=== PATIENT | female | born 1995 | race Caucasian/White ===

== ENCOUNTER 2021-12-17 14:52 | Observation (INO) ==
[2021-12-17] MEDS ORDERED: IOPAMIDOL 100 ML BOTTLE IV ONE (14:53)
--- NOTE | 2021-12-17 15:30 | Emergency Department Note ---
Abdominal Pain HPI <Larry Carranza PA-C - Last Filed: 12/17/21 16:32> General Chief Complaint: Abdominal Pain Stated Complaint: RLQ pain x few days Time Seen by Provider: 12/17/21 14:54 Source: patient Mode of arrival: ambulatory History of Present Illness HPI Narrative: Narrative: 26-year-old female who denies chronic medical history presents to the ER to be evaluated for 4 days of worsening right lower quadrant abdominal pain. She states the only position she feels relief is when she is standing but otherwise she is uncomfortable all the time. She denies history of ovarian cysts. She has had no vaginal bleeding or discharge she has no dysuria, urgency or frequency. She has no previous history of abdominal surgery and denies possibility of being . She has not had any change in her bowel or bladder habits she took a bowel movement this morning that was regular in caliber, character and quality. She has no dysuria, urgency or frequency. She has had no fever or change in appetite. She has no other acute complaints at this time. Related Data Home Medications Medication Instructions Recorded Confirmed No Known Home Meds 12/17/21 12/17/21 Allergies Allergy/AdvReac Type Severity Reaction Status Date / Time No Known Drug Allergies Allergy Verified 12/17/21 14:53 Review of Systems <Larry Carranza PA-C - Last Filed: 12/17/21 16:32> ROS ROS Narrative: Narrative: All systems ED: reviewed and negative except as stated. PFSH <Larry Carranza PA-C - Last Filed: 12/17/21 16:32> Narrative Patient History Narrative: Narrative: Medical/Surgical/Family History All Active Problems (Updated 12/17/21 @ 16:31 by Larry Carranza PA-C) Appendicitis (Acute) Social History Smoking Status: Current every day smoker Alcohol Intake Frequency: holiday/special occasion only Substance Use: marijuana Exam <Larry Carranza PA-C - Last Filed: 12/17/21 16:32> Narrative Narrative: Narrative: Gen: No acute distress Eyes: PERRL, no conjunctival injection , and symmetrical lids. Sclerae non icteric HENMT: Normocephalic Atraumatic head, external nose and ears. Moist MM. CVS: +S1/S2, No murmurs or gallops. Radial pulses 2+ and equal bilat. No swelli ng RESP: Unlabored respiratory effort . Clear to auscultation bilaterally (CTAB). No noted wheezes rales or ronchi. GI: Significant right lower quadrant tenderness with guarding other quadrants soft nontender Skin: Warm, Dry . No rashes or lesions . Cap refill less than 2. Psych: Awake, Alert, & Oriented (AAO) x3. Appropriate mood and affect . Course <Larry Carranza PA-C - Last Filed: 12/17/21 16:32> Vital Signs Vital signs: Vital Signs Temperature 97.6 F 12/17/21 14:53 Pulse Rate 71 12/17/21 14:53 Respiratory Rate 18 12/17/21 14:53 Blood Pressure 120/79 12/17/21 14:53 Pulse Oximetry (%) 99 12/17/21 14:53 Temperature 97.6 F 12/17/21 14:53 Pulse Rate 75 12/17/21 16:21 Respiratory Rate 18 12/17/21 14:53 Blood Pressure 124/85 12/17/21 16:21 Pulse Oximetry (%) 99 12/17/21 16:21 MDM <Larry Carranza PA-C - Last Filed: 12/17/21 16:32> MDM Narrative Medical decision making narrative: Narrative: Patient has had 4 days of right lower quadrant abdominal pain. No history of ovarian cysts, fever, chills, nausea or vomiting. She has never had an abdominal surgery and does have an appendix. Given her guarding and significant pain I do suspect appendicitis. She will be evaluated with CBC, CMP, lipase, UA and urine hCG. Show a CT scan of her abdomen pelvis with contrast. CBC: No white count CMP: Unremarkable Lipase: Normal UA: No evidence of infection hCG: Negative CT abdomen pelvis with contrast: Appendicitis, appendix is 15 mm and enlarged no periods and appendiceal fluid or appendicolith Dr Doss: Admit to him, NPO, Start on Zosyn. Patient last ate yesterday Lab Data Result diagrams: 12/17/21 15:06 12/17/21 15:06 Labs: Lab Results 12/17/21 12/17/21 Range/Units 15:06 15:06 WBC 9.2 (4.5-11.0) K/mcL RBC 3.91 (3.59-5.38) M/mcL Hgb 12.9 (11.2-15.7) g/dL Hct 38.0 (34.1-44.9) % MCV 97.2 (80.0-100.0) fL MCH 33.0 (26.0-34.0) pg MCHC 33.9 (31.0-36.0) g/dL RDW 11.1 L (11.5-14.5) % Plt Count 256 (140-440) K/mcL MPV 10.6 H (7.4-10.4) fL Neut % (Auto) 64.5 (38.0-78.0) % Lymph % (Auto) 27.8 (15.5-49.0) % Harney % (Auto) 5.7 (1.0-12.0) % Eos % (Auto) 1.5 (0.0-7.0) % Baso % (Auto) 0.5 (0.0-2.0) % Lymph # (Auto) 2.56 (1.50-4.80) K/mcL Harney # (Auto) 0.53 (0.10-0.90) K/mcL Eos # (Auto) 0.14 (0.00-0.70) K/mcL Baso # (Auto) 0.05 (0.00-0.30) K/mcL Absolute Neutrophils 5.94 (1.80-8.00) K/mcL Sodium 132 L (133-145) mmol/L Potassium 3.8 (3.3-5.1) mmol/L Chloride 94 L (96-108) mmol/L Carbon Dioxide 25 (22-30) mmol/L Anion Gap 13.0 (8.0-16.0) BUN 11 (6-20) mg/dL Creatinine 0.9 (0.6-1.1) mg/dL GFR Calculation 88 Glucose 106 H (70-105) mg/dL Calcium 9.3 (8.6-10.4) mg/dL Total Bilirubin 0.3 (0.1-1.0) mg/dL AST 14 (<32) U/L ALT 8 (<40) U/L Alkaline Phosphatase 102 (39-117) U/L Total Protein 7.8 (5.9-8.4) gm/dL Albumin 4.6 (3.2-5.2) gm/dL Globulin 3.2 (2.2-3.7) gm/dL Albumin/Globulin Ratio 1.4 (1.0-2.3) Lipase 12 (7-60) U/L ED POC Tests ED POC Tests: TABBY - SARS Antigen Negative HCG POC Results Negative Discharge Plan Patient/Caregiver Discharge Instructions Pt seen by FILM COMPOSER/PA only: Yes Clinical Impression: Appendicitis Patient Disposition: Xfer As Inpt ([facility]) Condition: Fair Discharge Date/Time: 12/17/21 17:10 Discharge Location: [facility]
[2021-12-17] MEDS: morphine 4 MG/ML VIAL IV PRN ×3 (15:51→20:52)
--- NOTE | 2021-12-17 15:55 | Cat Scan Report ---
INDICATION: R/O appy COMPARISON: None TECHNIQUE: Axial images were obtained through the abdomen and pelvis. Sagittally and coronally reformatted images. 80 mL Isovue 370 injected intravenously. Oral contrast material was not administered FINDINGS: Lung bases:Negative. No pulmonary parenchymal nodule. No pleural fluid or pericardial fluid Liver:Negative. No focal intrahepatic mass. No focal abnormality. Liver contour is smooth. No evidence for cirrhosis Gallbladder, bilary:No calcified gallstones. No gallbladder wall thickening. No dilated intra or extrahepatic bile ducts. Spleen:No splenomegaly. Normal enhancement of splenic and portal veins. Pancreas:No pancreatic mass. No peripancreatic abnormality Adrenal glands:Negative Kidneys,ureters,bladder:No solid renal mass. No hydronephrosis. No obstructing or nonobstructing calculi. No hydroureter. No ureteral calculus. No bladder stone. No detectable bladder mass. Gastrointestinal:No detectable colonic mass. There is no diverticulitis. Negative small bowel. No mechanical small bowel obstruction. No bowel wall thickening. No focal abnormality. Negative stomach and duodenum. No focal abnormality. Appendix: The appendix is abnormal. The appendix is enlarged and measures 15 mm in cross-sectional diameter. There is mild periappendiceal inflammatory change. No evidence for ruptured appendix. There is no appendicolith. No abscess. No significant periappendiceal fluid collection Vascular:Negative abdominal aorta. Superior mesenteric artery and celiac trunk are normal. Normal opacification of the inferior mesenteric artery Lymphatic:No retroperitoneal or mesenteric adenopathy Mesentery, peritoneum: No free intraperitoneal fluid. No mesenteric or retroperitoneal mass. No intra-abdominal abscess. Reproductive:Uterus is anteflexed. No adnexal mass Musculoskeletal:No lumbar compression fractures. Sacrum and pelvis are negative. No hip fracture. No abdominal wall or inguinal hernia IMPRESSION: 1. Appendicitis. 2. No evidence for ruptured appendix. No abscess or significant periappendiceal fluid collection The exam was performed using radiation dose optimization techniques including, but not limited to, automated exposure control, adjustment of the mA and/or kV according to patient size and use of iterative reconstruction technique. Interpreted and Authenticated by: Dustin Pang 12/17/21
[2021-12-17 15:57] LABS: Basophils # (Auto) 0.05 K/mcL (0.00-0.30); Basophils % (Auto) 0.5 % (0.0-2.0); Eosinophils # (Auto) 0.14 K/mcL (0.00-0.70); Eosinophils % (Auto) 1.5 % (0.0-7.0); Hemoglobin 12.9 g/dL (11.2-15.7); Lymphocytes # (Auto) 2.56 K/mcL (1.50-4.80); Lymphocytes % (Auto) 27.8 % (15.5-49.0); Mean Cell Volume 97.2 fL (80.0-100.0); Mean Corpuscular HGB Conc 33.9 g/dL (31.0-36.0); Mean Platelet Volume 10.6 fL (7.4-10.4); Monocytes # (Auto) 0.53 K/mcL (0.10-0.90); Monocytes % (Auto) 5.7 % (1.0-12.0); Neutrophils % (Auto) 64.5 % (38.0-78.0); Platelet Count 256 K/mcL (140-440); RBC 3.91 M/mcL (3.59-5.38); Red Cell Distribution Width 11.1 % (11.5-14.5); WBC 9.2 K/mcL (4.5-11.0)
[2021-12-17] MEDS ORDERED: PIPERACILLIN SODIUM/TAZOBACTAM 3.375 GM in DEXTROSE 5% IN WATER 50 ML IV ONE (16:02)
[2021-12-17] MEDS ORDERED: morphine 4 MG/ML VIAL IV PRN (16:03)
[2021-12-17] MEDS ORDERED: ONDANSETRON 4 MG/2 ML VIAL IV PRN (16:03)
[2021-12-17 16:27] LABS: ALT/SGPT 8 U/L (<40); AST/SGOT 14 U/L (<32); Albumin 4.6 gm/dL (3.2-5.2); Albumin/Globulin Ratio 1.4 (1.0-2.3); Alkaline Phosphatase 102 U/L (39-117); Bilirubin,Total 0.3 mg/dL (0.1-1.0); Blood Urea Nitrogen 11 mg/dL (6-20); Calcium 9.3 mg/dL (8.6-10.4); Carbon Dioxide 25 mmol/L (22-30); Chloride 94 mmol/L (96-108); Globulin 3.2 gm/dL (2.2-3.7); Glomerular Filtration Rate 88; Glucose 106 mg/dL (70-105)
[2021-12-17] MEDS: 0.9 % SODIUM CHLORIDE 1,000 ML IV SCH (16:56)
--- NOTE | 2021-12-17 18:11 | General Surg History&Physical ---
HPI History of Present Illness Patient information: Note initiated : 12/17/21 at 6:06 pm Service Date, if different from initiated Date: [] Patient: Rj Amos a 26 y/o F admitted on 12/17/21 for RLQ pain x few days. Chief Complaint: [] History of present illness: Ms. Amos is a 26 year old F with a 4-day history of lower abdomen and right lower quadrant pain. She had some nausea but no vomiting. The pain increased in intensity to the point that she was having exacerbations with any movement. She was evaluated in the emergency room and was noted to have severe right lower quadrant pain and tenderness with questionable mass. CT shows appendiceal dilation with inflammation of mild periappendiceal inflammation. She has a normal white count. She is afebrile. She is counseled for laparoscopic appendectomy and it will be performed tomorrow. She will be treated with antibiotics tonight. Review of Systems All systems: reviewed and no additional remarkable complaints except as stated PFSH PFSH All Active Problems (Updated 12/17/21 @ 18:10 by Marcella Doss MD) Acute appendicitis (Acute) Appendicitis (Acute) Social History alcohol intake frequency: holiday/special occasion only substance use type: marijuana MEDS/ALLERGIES Home Medications and Allergies Home Medications Medication Instructions Recorded Confirmed Type No Known Home Meds 12/17/21 12/17/21 History Allergies Allergy/AdvReac Type Severity Reaction Status Date / Time No Known Drug Allergies Allergy Verified 12/17/21 14:53 Physical Examination Vital Signs Vital signs: Temp Pulse Resp BP Pulse Ox 98.2 F 75 16 112/67 98 12/17/21 18:03 12/17/21 18:03 12/17/21 18:03 12/17/21 18:03 12/17/21 18:03 General physical appearance General physical exam: no distress and moderate pain Eyes Eye exam: PERRL and normal ocular movement ENT ENT exam: normal mucosa and no congestion Head Head exam IM: Present atraumatic, normal inspection and normocephalic Neck Neck exam: no masses, no bruits, trachea midline, no lymphadenopathy and no venous distension Cardiovascular Cardiovascular exam IM: Present normal rate and rhythm, RRR, +S1 and +S2; Absent JVD Respiratory Respiratory exam: normal expansion, normal respiratory effort and clear to auscultation Abdomen Abdomen: Present soft, tender (Tenderness to palpation in the right lower quadrant and hypogastric) and guarding; Absent masses Integumentary Integumentary: Present no rash, no growths, no abnormal pigmentation and other (Extensive tattoos) Neurologic Neurologic: Present normal coordination and normal sensation Musculoskeletal Musculoskeletal: Present normal gait and normal posture Psychiatric Psychiatric: Present oriented to time, oriented to person, oriented to place, speech is normal and memory intact Results Labs Result diagrams: 12/17/21 15:06 12/17/21 15:06 Labs: Abnormal lab results 12/17/21 12/17/21 Range/Units 15:06 15:06 RDW 11.1 L (11.5-14.5) % MPV 10.6 H (7.4-10.4) fL Sodium 132 L (133-145) mmol/L Chloride 94 L (96-108) mmol/L Glucose 106 H (70-105) mg/dL Diabetes panel 12/17/21 Range/Units 15:06 Sodium 132 L (133-145) mmol/L Potassium 3.8 (3.3-5.1) mmol/L Chloride 94 L (96-108) mmol/L Carbon Dioxide 25 (22-30) mmol/L BUN 11 (6-20) mg/dL Creatinine 0.9 (0.6-1.1) mg/dL Glucose 106 H (70-105) mg/dL Calcium 9.3 (8.6-10.4) mg/dL AST 14 (<32) U/L ALT 8 (<40) U/L Alkaline Phosphatase 102 (39-117) U/L Total Protein 7.8 (5.9-8.4) gm/dL Albumin 4.6 (3.2-5.2) gm/dL Calcium panel 12/17/21 Range/Units 15:06 Calcium 9.3 (8.6-10.4) mg/dL Albumin 4.6 (3.2-5.2) gm/dL Pituitary panel 12/17/21 Range/Units 15:06 Sodium 132 L (133-145) mmol/L Potassium 3.8 (3.3-5.1) mmol/L Chloride 94 L (96-108) mmol/L Carbon Dioxide 25 (22-30) mmol/L BUN 11 (6-20) mg/dL Creatinine 0.9 (0.6-1.1) mg/dL Glucose 106 H (70-105) mg/dL Calcium 9.3 (8.6-10.4) mg/dL Adrenal panel 12/17/21 Range/Units 15:06 Sodium 132 L (133-145) mmol/L Potassium 3.8 (3.3-5.1) mmol/L Chloride 94 L (96-108) mmol/L Carbon Dioxide 25 (22-30) mmol/L BUN 11 (6-20) mg/dL Creatinine 0.9 (0.6-1.1) mg/dL Glucose 106 H (70-105) mg/dL Calcium 9.3 (8.6-10.4) mg/dL Total Bilirubin 0.3 (0.1-1.0) mg/dL AST 14 (<32) U/L ALT 8 (<40) U/L Alkaline Phosphatase 102 (39-117) U/L Total Protein 7.8 (5.9-8.4) gm/dL Albumin 4.6 (3.2-5.2) gm/dL All other labs normal. A/P Assessment and plan (1) Acute appendicitis: Status: Acute Narrative A/P Narrative: May have clear liquids until midnight N.p.o. after midnight Counseled for laparoscopic appendectomy to be done tomorrow Zosyn 3.375 g IV every 6 hours CBC and inpatient panel in the morning Time Spent With Patient Time: Total time spent is greater than 50% in coordination of care (as documented) at patient's floor/unit and/or counseling patient:
[2021-12-17] MEDS ORDERED: PROMETHAZINE 25 MG/ML VIAL IV PRN (18:13)
[2021-12-18] MEDS: PIPERACILLIN SODIUM/TAZOBACTAM 3.375 GM in DEXTROSE 5% IN WATER 50 ML IV SCH ×4 (00:34→17:20)
[2021-12-18] MEDS: 0.9 % SODIUM CHLORIDE 1,000 ML IV SCH ×3 (01:14→17:14)
[2021-12-18] MEDS: morphine 4 MG/ML VIAL IV PRN ×4 (05:31→22:55)
[2021-12-18 06:44] LABS: Basophils # (Auto) 0.04 K/mcL (0.00-0.30); Basophils % (Auto) 0.7 % (0.0-2.0); Eosinophils # (Auto) 0.25 K/mcL (0.00-0.70); Eosinophils % (Auto) 4.6 % (0.0-7.0); Hemoglobin 11.8 g/dL (11.2-15.7); Lymphocytes # (Auto) 2.51 K/mcL (1.50-4.80); Lymphocytes % (Auto) 46.6 % (15.5-49.0); Mean Cell Volume 99.2 fL (80.0-100.0); Mean Corpuscular HGB Conc 33.7 g/dL (31.0-36.0); Mean Platelet Volume 10.8 fL (7.4-10.4); Monocytes # (Auto) 0.46 K/mcL (0.10-0.90); Monocytes % (Auto) 8.5 % (1.0-12.0); Neutrophils % (Auto) 39.6 % (38.0-78.0); Platelet Count 226 K/mcL (140-440); RBC 3.53 M/mcL (3.59-5.38); Red Cell Distribution Width 11.1 % (11.5-14.5); WBC 5.4 K/mcL (4.5-11.0)
[2021-12-18 07:14] LABS: ALT/SGPT 7 U/L (<40); AST/SGOT 11 U/L (<32); Albumin 3.7 gm/dL (3.2-5.2); Albumin/Globulin Ratio 1.5 (1.0-2.3); Alkaline Phosphatase 79 U/L (39-117); Bilirubin,Direct < 0.2 mg/dL (0-0.3); Bilirubin,Total 0.2 mg/dL (0.1-1.0); Blood Urea Nitrogen 10 mg/dL (6-20); Calcium 8.6 mg/dL (8.6-10.4); Carbon Dioxide 25 mmol/L (22-30); Chloride 105 mmol/L (96-108); Globulin 2.4 gm/dL (2.2-3.7); Glomerular Filtration Rate 88; Glucose 91 mg/dL (70-105); Lactate Dehydrogenase 141 U/L (135-225); Phosphorous 4.7 mg/dL (2.5-4.5); Triglycerides 85 mg/dL (<150); Uric Acid 3.8 mg/dL (2.5-8.0)
[2021-12-18] MEDS ORDERED: SCOPOLAMINE 1 PATCH PATCH TOPICAL PRN (09:59)
[2021-12-18] MEDS ORDERED: IPRATROPIUM/ALBUTEROL 3 ML AMPUL.NEB NEB PRN ×2 (09:59→13:11)
[2021-12-18] MEDS ORDERED: LIDOCAINE HCL/PF 100 MG/5 ML SYRINGE IV ONE (12:36)
[2021-12-18] MEDS ORDERED: MIDAZOLAM 2 MG/2 ML VIAL ONE (12:36)
[2021-12-18] MEDS ORDERED: KETAMINE 50 MG/ML Syringe (ANEST) IV ONE (12:36)
[2021-12-18] MEDS ORDERED: DEXAMETHASONE 10 MG/ML VIAL ONE (12:36)
[2021-12-18] MEDS ORDERED: ROCURONIUM 10 MG/ML ML IV ONE (12:36)
[2021-12-18] MEDS ORDERED: PROPOFOL 200 MG/20 ML VIAL IV ONE (12:36)
[2021-12-18] MEDS ORDERED: ONDANSETRON 4 MG/2 ML VIAL ONE (12:36)
[2021-12-18] MEDS ORDERED: fentaNYL 100 MCG/2 ML VIAL IV ONE (12:36)
[2021-12-18] MEDS ORDERED: SUGAMMADEX SODIUM 200 MG/2 ML VIAL IV ONE (12:36)
[2021-12-18] MEDS ORDERED: KETOROLAC 30 MG/ML VIAL ONE (12:36)
[2021-12-18] MEDS ORDERED: FAMOTIDINE/PF 20 MG/2 ML VIAL IV ONE (12:36)
[2021-12-18 12:48] LABS: Appearance,Urine Clear (Clear); Bilirubin,Urine Negative (Negative); Color,Urine Yellow; Culture Indicated,Urine No; Glucose,Urine (UA) Negative (Negative); Ketones,Urine Negative (Negative); Leukocyte Esterase,Urine Negative /uL (Negative); Nitrate,Urine Negative (Negative); Protein,Urine Negative (Negative); Urine Blood Negative ery/mcL (Negative); Urobilinogen,Urine Normal
[2021-12-18] MEDS ORDERED: BENZOCAINE/MENTHOL 1 LOZENGE PO PRN (13:11)
[2021-12-18] MEDS ORDERED: FLUMAZENIL 0.1 MG/ML ML IV PRN (13:11)
[2021-12-18] MEDS ORDERED: NALOXONE HCL 0.4 MG/ML VIAL IV PRN (13:11)
[2021-12-18] MEDS ORDERED: ACETAMINOPHEN 1,000 MG/100 ML BAG IV ONE (13:11)
[2021-12-18] MEDS ORDERED: PROMETHAZINE 25 MG/ML VIAL IV PRN (13:11)
[2021-12-18] MEDS ORDERED: MEPERIDINE 25 MG/ML VIAL IV PRN (13:11)
[2021-12-18] MEDS ORDERED: HYDROmorphone 0.5 MG/0.5 ML SYRINGE IV PRN (13:11)
--- NOTE | 2021-12-18 13:12 | Brief Operative Note ---
Brief Operative Note Date of procedure: 12/18/21 Pre-op diagnosis: acute appendicitis Post-op diagnosis: other (acute appendicitis) Procedure: LAPAROSCOPIC APPENDECTOMY Grafts/Implants: No Anesthesia: GETA Findings: ACUTE SUPPURATIVE APPENDICITIS Complications: none Surgeon: Marcella Doss Estimated blood loss (cc): 10 Specimens Removed/Pathology: other (APPENDIX) Condition: stable Disposition: PACU
[2021-12-18] MEDS ORDERED: LACTATED RINGERS 1,000 ML IV SCH (13:15)
[2021-12-18] MEDS: fentaNYL 100 MCG/2 ML VIAL IV PRN ×4 (13:58→14:06)
[2021-12-18] MEDS: HYDROmorphone 1 MG/ML SYRINGE IV PRN ×2 (15:08→17:18)
[2021-12-18 16:31] LABS: Basophils # (Auto) 0.04 K/mcL (0.00-0.30); Basophils % (Auto) 0.4 % (0.0-2.0); Eosinophils # (Auto) 0.05 K/mcL (0.00-0.70); Eosinophils % (Auto) 0.5 % (0.0-7.0); Hematocrit 34.9 % (34.1-44.9); Hemoglobin 11.9 g/dL (11.2-15.7); Lymphocytes # (Auto) 1.24 K/mcL (1.50-4.80); Lymphocytes % (Auto) 12.9 % (15.5-49.0); Mean Cell Volume 96.7 fL (80.0-100.0); Mean Corpuscular HGB Conc 34.1 g/dL (31.0-36.0); Mean Platelet Volume 10.7 fL (7.4-10.4); Neutrophils % (Auto) 85.2 % (38.0-78.0); Platelet Count 240 K/mcL (140-440); RBC 3.61 M/mcL (3.59-5.38); Red Cell Distribution Width 10.8 % (11.5-14.5); WBC 9.6 K/mcL (4.5-11.0)
[2021-12-18] MEDS: oxyCODONE HCL 5 MG TABLET PO PRN (19:26)
[2021-12-18] MEDS: ACETAMINOPHEN 1,000 MG/100 ML BAG IV SCH (21:28)
[2021-12-19] MEDS: PIPERACILLIN SODIUM/TAZOBACTAM 3.375 GM in DEXTROSE 5% IN WATER 50 ML IV SCH ×3 (00:40→11:19)
[2021-12-19] MEDS: 0.9 % SODIUM CHLORIDE 1,000 ML IV SCH ×2 (00:41→11:12)
[2021-12-19] MEDS: ACETAMINOPHEN 1,000 MG/100 ML BAG IV SCH ×3 (01:26→13:30)
[2021-12-19] MEDS: morphine 4 MG/ML VIAL IV PRN (03:42)
[2021-12-19 07:10] LABS: Basophils # (Auto) 0.02 K/mcL (0.00-0.30); Basophils % (Auto) 0.2 % (0.0-2.0); Eosinophils # (Auto) 0 K/mcL (0.00-0.70); Eosinophils % (Auto) 0 % (0.0-7.0); Hematocrit 32.2 % (34.1-44.9); Hemoglobin 11.4 g/dL (11.2-15.7); Lymphocytes # (Auto) 1.39 K/mcL (1.50-4.80); Lymphocytes % (Auto) 12.8 % (15.5-49.0); Mean Cell Volume 95.3 fL (80.0-100.0); Mean Corpuscular HGB Conc 35.4 g/dL (31.0-36.0); Mean Platelet Volume 10.9 fL (7.4-10.4); Monocytes # (Auto) 0.58 K/mcL (0.10-0.90); Monocytes % (Auto) 5.3 % (1.0-12.0); Neutrophils % (Auto) 81.7 % (38.0-78.0); Platelet Count 246 K/mcL (140-440); RBC 3.38 M/mcL (3.59-5.38); Red Cell Distribution Width 10.6 % (11.5-14.5); WBC 10.9 K/mcL (4.5-11.0)
[2021-12-19] MEDS: oxyCODONE HCL 5 MG TABLET PO PRN ×2 (07:33→11:34)
--- NOTE | 2021-12-19 12:55 | Discharge Summary ---
Discharge Provider Provider Patient information: Note initiated : 12/19/21 at 12:52 pm Service Date, if different from initiated Date: [] Patient: Rj Amos 26 y/o F admitted on 12/17/21 for RLQ pain x few days. Chief Complaint: [] Date of admission: 12/17/21 17:05 Discharge date: 12/19/21 Primary care physician: PCP No Admitting clinician: Marcella Doss Attending physician on admission: Marcella Doss Consults: 12/17/21 Consult to Physician [CONS] Stat Comment: Consulting Provider: Marcella Doss Reason For Exam: Physician to Consult Attending physician on discharge: Marcella Doss Discharging clinician: Marcella Doss COURSE Hospital Course Hospital course: 26-year-old female with history of hypogastric and right lower quadrant pain. Patient was evaluated in the emergency room with findings of tenderness with guarding in the right lower quadrant. CT showed acute appendicitis. She underw ent laparoscopic appendectomy on yesterday. She has had an uneventful course and is discharged in stable satisfactory condition. Discharge diagnosis: Acute appendicitis Reason for admission: Acute appendicitis Procedures: Laparoscopic appendectomy Pertinent studies/significant findings: CT of the abdomen and pelvis with IV contrast Complications: None Time Spent with Patient Time attestation: Total time spent providing and/or coordinating discharge services: Physical Examination Vital Signs Vital signs: Temp Pulse Resp BP Pulse Ox 97.4 F 64 12 123/68 98 12/19/21 12:00 12/19/21 12:00 12/19/21 12:00 12/19/21 12:00 12/19/21 12:00 General physical appearance General physical exam: well developed, well nourished, no distress and moderate pain Eyes Eye exam: PERRL and normal ocular movement ENT ENT exam: no hearing loss Head Head exam IM: Present atraumatic, normal inspection and normocephalic Neck Neck exam: no masses, no bruits, trachea midline, no lymphadenopathy and no venous distension Cardiovascular Cardiovascular exam IM: Present normal rate and rhythm, RRR, +S1 and +S2; Absent JVD Respiratory Respiratory exam: normal expansion, normal respiratory effort and clear to auscultation Abdomen Abdomen: Present tender (Mild tenderness around port sites) and bowel sounds (Normal active bowel sounds) Integumentary Integumentary: Present no growths and other (Extensive tattoos) Neurologic Neurologic: Present normal coordination and normal sensation Musculoskeletal Musculoskeletal: Present normal gait and normal posture Psychiatric Psychiatric: Present oriented to time, oriented to person, oriented to place, speech is normal and memory intact Discharge Plan Patient/Caregiver Discharge Instructions Activity: increase activity as tolerated Diet: Regular Diet Stand Alone Forms: Work/Release Restrictions Prescriptions: New oxycodone-acetaminophen [Endocet] 10-325 mg Tablet 1 tab PO Q4H PRN (Reason: Pain) Qty: 30 0RF No Action ibuprofen 200 mg PO PC PRN (Reason: Pain) 0RF Follow Up Plan Follow up with: Marcella Doss MD [Physician] - (Follow-up in the office in 2 weeks) No,PCP [Primary Care Provider] - Patient Disposition: Home, Self-Care Prognosis: Good Rehab Potential: Good I certify that the patient requires SNF services: No Overall status at discharge: patient is progressing back to baseline Discharge Orders: Discharge Order (Routine); Ordered 12/19/21 Ordered By: Marcella Doss Pending Pending Pending: Resuscitation Status Resuscitate (Full Code) Diet Regular Diet Start SatDec 19 0800 Hydromorphone HCl (Hydromorphone 1 Mg/Ml Syringe) 1 mg IV Q2HP PRN; Protocol PRN Reason: Per Pain Protocol Last Admin: 12/18/21 17:18 Dose: 1 mg Documented by: Admin: 12/18/21 15:08 Dose: 1 mg Documented by: PETE Sodium Chloride (Sodium Chloride 0.9%) 1,000 mls @ 125 mls/hr IV .Q8H [facility] Last Admin: 12/19/21 11:12 Dose: Not Given Documented by: Infusion: 12/19/21 03:33 Dose: 0 mls/hr Documented by: Admin: 12/19/21 00:41 Dose: Not Given Documented by: Admin: 12/18/21 17:14 Dose: 125 mls/hr Documented by: Infusion: 12/18/21 16:53 Dose: 125 mls/hr Documented by: Admin: 12/18/21 08:53 Dose: 125 mls/hr Documented by: Infusion: 12/18/21 08:53 Dose: 125 mls/hr Documented by: Admin: 12/18/21 01:14 Dose: 125 mls/hr Documented by: Infusion: 12/18/21 00:35 Dose: 125 mls/hr Documented by: Admin: 12/17/21 16:56 Dose: 125 mls/hr Documented by: TAYLOR Piperacillin Sod/Tazobactam (Sod 3.375 gm/ Dextrose) 50 mls @ 100 mls/hr IV Q6H ISAMAR; Protocol Last Infusion: 12/19/21 12:04 Dose: 0 mls/hr Documented by: Admin: 12/19/21 11:19 Dose: 100 mls/hr Documented by: Infusion: 12/19/21 06:37 Dose: 0 mls/hr Documented by: Admin: 12/19/21 05:46 Dose: 100 mls/hr Documented by: Infusion: 12/19/21 01:15 Dose: 0 mls/hr Documented by: Admin: 12/19/21 00:40 Dose: 100 mls/hr Documented by: Infusion: 12/18/21 17:50 Dose: 0 mls/hr Documented by: Admin: 12/18/21 17:20 Dose: 100 mls/hr Documented by: Infusion: 12/18/21 11:45 Dose: 0 mls/hr Documented by: Admin: 12/18/21 11:13 Dose: 100 mls/hr Documented by: Infusion: 12/18/21 06:30 Dose: 0 mls/hr Documented by: Admin: 12/18/21 05:35 Dose: 100 mls/hr Documented by: Infusion: 12/18/21 01:13 Dose: 0 mls/hr Documented by: Admin: 12/18/21 00:34 Dose: 100 mls/hr Documented by: SUSAN Acetaminophen (Ofirmev) 1,000 mg in 100 mls @ 200 mls/hr IV Q6H ISAMAR Stop: 12/19/21 19:29 Last Infusion: 12/19/21 08:49 Dose: 0 mls/hr Documented by: Admin: 12/19/21 07:36 Dose: 200 mls/hr Documented by: Infusion: 12/19/21 02:05 Dose: 0 mls/hr Documented by: Admin: 12/19/21 01:26 Dose: 200 mls/hr Documented by: Infusion: 12/18/21 22:50 Dose: 0 mls/hr Documented by: Admin: 12/18/21 21:28 Dose: 200 mls/hr Documented by: SUSAN Oxycodone HCl (Oxycodone Hcl 5 Mg Tablet) 10 mg PO Q4HP PRN; Protocol PRN Reason: Per Pain Protocol Last Admin: 12/19/21 11:34 Dose: 10 mg Documented by: Admin: 12/19/21 07:33 Dose: 10 mg Documented by: Admin: 12/18/21 19:26 Dose: 10 mg Documented by: SUSAN Shift Summary 12/19/21 04:46 Shift Summary by Haleigh Sawyer Primary Diagnosis: RLQ pain for multiple days Registration Status: OBS Day of Hospitalization: 12/17 Date of Surgery (if applicable): 12/18- Lap Appy Pertinent Medical Dx/Issues (may be more than one): None Interventions (O2, wounds, diuresis, etc): IVF, PRN pain meds, Ice packs, 3 Lap sites are C/D/I on this shift. Vital Signs with Trends: VSS on RA Meds (abo, pain, BP, etc): Scheduled OFRIMEV x2, Morphine x2, and Roxicodone x1. pain under control and was able to sleep some on this shift. Lines/Tubes: 20g LAC running NS @125mls/hr Lab/Rad results: AM labs drawn, results pending Date of last BM: 12/17 Elimination: Voids via toilet Activity: Up with SBA Expected date of discharge: TBD Discharge Plan (needs, disposition, etc): TBD Alert and oriented x4. Very pleasant and cooperative. SBA to and from bathroom r/t pain meds. Will update at bedside. Initialized on 12/19/21 04:46 - END OF NOTE
--- NOTE | 2021-12-19 16:31 | Operative Note ---
DATE OF OPERATION: 12/16/2021 PREOPERATIVE DIAGNOSIS: Acute appendicitis. POSTOPERATIVE DIAGNOSIS: Acute appendicitis. PROCEDURE: Laparoscopic appendectomy. SURGEON: Marcella Doss M.D. FINDINGS: Acute suppurative appendicitis. DESCRIPTION OF PROCEDURE: Under general anesthesia, the patient's abdomen was prepped and draped in a sterile field. Timeout procedure was carried out as per protocol. Supraumbilical midline incision was made and Veress needle was inserted uneventfully. Abdomen was insufflated with 1.8 liters of CO2. A 12 mm port was placed. Under videoscopic guidance, a 5 mm port was placed in the suprapubic midline and a 12 mm port in the left lower quadrant. The patient was placed in deep Trendelenburg position and rotated to the left. The appendix was easily identifiable. It was grasped with a self-retaining grasper. The base of the mesoappendix was dissected using [place] dissectors. The appendix was transected using the Endo stapler. Mesoappendix was transected using the Endo stapler. Hemostasis was achieved with electrocautery. Irrigation was carried out. The appendix was placed in an Endopouch and retrieved. Further irrigation of the pelvis was carried out. There was no purulence noted. There was no bleeding at the base of the cecum. CO2 was allowed to escape from the abdomen and the ports were removed. The fascia at the umbilicus and in the left lower quadrant were closed with 0 Vicryl. Skin incisions were closed with gabino. The patient tolerated the procedure well. Tegaderm dressings were placed. She was awakened and transferred to the postanesthetic care unit in satisfactory condition. LCS:lamberto Job ID: [id number] Doc ID: [id number] Marcella Doss M.D. MTDD
== END 2021-12-19 14:16 | disposition home or self-care (01) ==
LOC: MEDSUR 14:52 → ED 14:52 → MEDSUR 17:10
PROVIDERS: ADMIT Family Medicine Adult Medicine; ATTEND Family Medicine Adult Medicine